=== PATIENT | female | born 2000 | race Caucasian/White ===

== ENCOUNTER 2021-10-09 15:12 | Emergency (ER) | payer MEDICAID ==
[2021-10-09] MEDS ORDERED: Ondansetron 4 MG/2 ML SDV IVPUSH ONE (16:11)
[2021-10-09] MEDS ORDERED: Sodium Chloride 0.9% 1,000 ML IV ONE (16:11)
[2021-10-09 17:28] LABS: CORONAVIRUS COVID-19 NAA NEGATIVE (NEGATIVE); INFLUENZA A NAA NEGATIVE (NEGATIVE); INFLUENZA B NAA NEGATIVE (NEGATIVE)
[2021-10-09 17:32] LABS: BLOOD UREA NITROGEN,BUN 7 mg/dL (7.0-18.0); CARBON DIOXIDE,CO2 21.3 mmol/L (21.0-32.0); CHLORIDE,CL 104 mmol/L (98-107); GLUCOSE RANDOM 81 mg/dL (74-106); LIPASE 126 U/L (73-393); POTASSIUM,K 3.6 mmol/L (3.5-5.1); SODIUM,NA 135 mmol/L (136-145)
== END 2021-10-09 18:32 | disposition home or self-care (01) ==
LOC: MW.ED 15:12
DX: O99.891 Other specified diseases and conditions complicating pregnancy (principal); R10.84 Generalized abdominal pain; O21.9 Vomiting of pregnancy, unspecified; Z20.822 Contact with and (suspected) exposure to COVID-19
CPT/HCPCS: 0240U; 36415; 80053; 81003; 83690; 84702; 85025; 96374; 99284; J2405; J7030

== ENCOUNTER 2021-10-30 17:53 | Emergency (ER) | payer MEDICAID ==
[2021-10-30] MEDS: Sodium Chloride 0.9% 1,000 ML IV ONE (19:07)
[2021-10-30] MEDS: Ondansetron 4 MG/2 ML SDV IVPUSH ONE (19:07)
[2021-10-30 19:31] LABS: BLOOD UREA NITROGEN,BUN 6 mg/dL (7.0-18.0); CARBON DIOXIDE,CO2 23.3 mmol/L (21.0-32.0); CHLORIDE,CL 101 mmol/L (98-107); GLUCOSE RANDOM 90 mg/dL (74-106); POTASSIUM,K 3.3 mmol/L (3.5-5.1); SODIUM,NA 135 mmol/L (136-145)
[2021-10-30 20:00] LABS: CORONAVIRUS COVID-19 NAA NEGATIVE (NEGATIVE); INFLUENZA A NAA NEGATIVE (NEGATIVE); INFLUENZA B NAA NEGATIVE (NEGATIVE)
[2021-10-30] MEDS: Potassium Chloride 20 MEQ Tab.ER PO ONE (20:20)
== END 2021-10-30 20:28 | disposition home or self-care (01) ==
LOC: MW.ED 17:53
DX: O21.9 Vomiting of pregnancy, unspecified (principal); Z20.822 Contact with and (suspected) exposure to COVID-19; Z3A.12 12 weeks gestation of pregnancy
CPT/HCPCS: 0240U; 36415; 80053; 81003; 83735; 84703; 85025; 96374; 99284; A9270; J2405; J7030